=== PATIENT | male | born 1970 | race African-American/Black ===

== ENCOUNTER 2022-09-22 16:43 | Emergency (ER) | payer OTHER ==
[~2022-09-22] VITALS: Ht 175.3 cm; Wt 86.6 kg
[2022-09-22] MEDS ORDERED: LIDOCAINE HCL/PF 1% 10 MG/ML 5ML VIAL INFIL ONE (19:30)
[2022-09-22] MEDS ORDERED: LIDOCAINE HCL/EPINEPHRINE 1%-EPI 1:100,000 20 ML VIAL INFIL ONE (19:30)
[2022-09-22] MEDS ORDERED: TETANUS, DIPHTHERIA, PERTUSSIS VAC/PF 0.5ML (>10YR OLD) IM ONE (19:30)
[2022-09-22] MEDS ORDERED: BACITRACIN ZINC OINT UDPKT TOP ONE (19:30)
[2022-09-22] MEDS ORDERED: IBUPROFEN 400MG TABLET PO ONE (19:45)
[2022-09-22] MEDS ORDERED: IBUP-2028 MT (21:26)
[2022-09-22] MEDS ORDERED: AMOX1TAB16 MT (21:26)
[2022-09-22 21:54] VITALS: BP 132/77
== END 2022-09-22 21:55 | disposition home or self-care (01) ==
LOC: ER 16:43
DX: S01.511A Laceration without foreign body of lip, initial encounter (principal); W18.30XA Fall on same level, unspecified, initial encounter; Y93.89 Activity, other specified; Y92.89 Other specified places as the place of occurrence of the external cause; Y99.8 Other external cause status
CPT/HCPCS: 12015; 99283; J3490; Z7610; 90715

== ENCOUNTER 2024-08-22 10:38 | Emergency (ER) | payer OTHER ==
[~2024-08-22] VITALS: Ht 175.3 cm; Wt 87.0 kg
[~2024-08-22 10:38] MED LIST: AMOX1TAB16 MT; IBUP-2028 MT
[2024-08-22 10:49] VITALS: O2SAT 100
[2024-08-22 10:56] VITALS: BP 129/81; PULSE 91; RESP 20; TEMP 36.8; O2SAT 97
[2024-08-22] MEDS: ACETAMINOPHEN 325MG TABLET PO NR (12:11)
[2024-08-22] MEDS: KETOROLAC 30MG/ML VIAL IM ONE (12:17)
[2024-08-22] MEDS ORDERED: KETO10TA2 MT (13:19)
== END 2024-08-22 13:45 | disposition home or self-care (01) ==
LOC: ER 10:38
DX: M25.562 Pain in left knee (principal)
CPT/HCPCS: 99284; 29505; 73552; 73590; 96372; J1885